=== PATIENT | female | born 1960 | race American Indian/Alaskan Native ===

== ENCOUNTER 2021-10-21 22:51 | Emergency (ER) | payer SELFPAY ==
[2021-10-22 00:20] LABS: Albumin 4.1 g/dL (3.9-5); Calcium 9.8 mg/dL (8.4-10.2)
[2021-10-22 00:39] LABS: Bacteria,Urine 1+ /HPF (Negative); Mucus,Urine FEW /HPF
[2021-10-22 00:41] LABS: Basophils % (Auto) 0.1 % (0.0-1.8); Eosinophils # (Auto) 0.1 K/mm3 (0.0-0.4); Eosinophils % (Auto) 0.7 % (0.0-4.3); Hematocrit 42.1 % (30.3-42.9); Hemoglobin 13.9 gm/dl (10.1-14.3); Lymphocytes # (Auto) 2.9 K/mm3 (1.2-5.4); Lymphocytes % (Auto) 32.1 % (13.4-35.0); Mean Corpuscular HGB Conc 33 % (30-34); Mean Corpuscular Volume 90 fl (79-97); Monocytes # (Auto) 0.8 K/mm3 (0.0-0.8); Monocytes % (Auto) 9.3 % (0.0-7.3); Platelet Count 213 K/mm3 (140-440); Red Blood Count 4.67 M/mm3 (3.65-5.03); Red Cell Distribution Width 13.2 % (13.2-15.2)
[2021-10-22 00:48] LABS: Bilirubin,Urine Negative (Negative); Blood,Urine Negative (Negative); Color,Urine Yellow (Yellow); Protein,Urine <15 mg/dL mg/dL (Negative); Urobilinogen,Urine < 2.0 mg/dL (<2.0)
--- NOTE | 2021-10-22 02:17 | Emergency Department Report ---
ED General Adult HPI - General Chief complaint: Hyperglycemia Stated complaint: TYPE 2 DIABETIC SUGAR HIGH Time Seen by Provider: 10/22/21 02:04 Source: patient Mode of arrival: Ambulatory Limitations: No Limitations - History of Present Illness Initial comments: 61-year-old female with a history of diabetes type 2, hypertension and asthma who presents with elevated blood sugar that she noticed at home. Patient reported that the glucometer read high and was concerned. Patient also reports some productive cough that is been going on for about 2 weeks. No fever or chills reported. No other modifying or associated factors reported. - Related Data Allergies Allergy/AdvReac Type Severity Reaction Status Date / Time No Known Allergies Allergy Unverified 10/21/21 23:21 ED Review of Systems ROS: Stated complaint: TYPE 2 DIABETIC SUGAR HIGH Other details as noted in HPI Comment: All other systems reviewed and negative Constitutional: malaise Respiratory: cough Cardiovascular: denies: chest pain, palpitations ED Past Medical Hx - Past Medical History Previous Medical History?: Yes Hx Diabetes: Yes Hx Asthma: Yes - Surgical History Past Surgical History?: Yes Hx Cholecystectomy: Yes Additional Surgical History: left knee x 3, - Social History Smoking Status: Never Smoker ED Physical Exam - General Limitations: No Limitations General appearance: alert, in no apparent distress, obese - Head Head exam: Present: normal inspection - Eye Eye exam: Present: normal appearance Pupils: Present: normal accommodation - ENT ENT exam: Present: normal exam, normal orophraynx, mucous membranes dry - Neck Neck exam: Present: normal inspection, full ROM. Absent: tenderness - Respiratory Respiratory exam: Present: normal lung sounds bilaterally. Absent: respiratory distress, accessory muscle use - Cardiovascular Cardiovascular Exam: Present: regular rate, normal rhythm, normal heart sounds - GI/Abdominal GI/Abdominal exam: Present: soft, normal bowel sounds. Absent: distended, tenderness - Extremities Exam Extremities exam: Present: normal inspection, normal capillary refill. Absent: pedal edema - Back Exam Back exam: Absent: tenderness - Neurological Exam Neurological exam: Present: alert, oriented X3 - Psychiatric Psychiatric exam: Present: normal affect - Skin Skin exam: Present: warm, dry ED Course Vital Signs 10/21/21 10/22/21 23:15 01:55 Temperature 99.0 F 98.1 F Pulse Rate 86 71 Respiratory 18 14 Rate Blood Pressure 142/95 Blood Pressure 132/80 [Left] O2 Sat by Pulse 96 94 Oximetry ED Medical Decision Making - Lab Data Result diagrams: 10/21/21 23:32 10/21/21 23:32 - Medical Decision Making here with elevated blood sugar and cough x 2 weeks-- patient symptoms could have been from an infectious process or any electrolytes abnormality-- so will go ahead and check routine labs including CBC, CMP and UA and CXR-- In the meantime will start aggressive ivf ns 1L bolus x 1 and give insulin 10 units SQ and IV x 1-- while waiting for the above workup labs-- Lab reviewed to be wnl -- except blood glucose 622 mg/dl -when rechecked after the above insulin and normal saline treatment is improved to 177 mg/dl-- pt reports feeling a little better and ready to be discharged. Critical care attestation.: If time is entered above; I have spent that time in minutes in the direct care of this critically ill patient, excluding procedure time. ED Disposition Clinical Impression: Cough Qualifiers: Cough type: unspecified Qualified Code(s): R05.9 - Cough, unspecified Hyperglycemia due to type 2 diabetes mellitus Qualifiers: Diabetes mellitus fdc insulin use: unspecified fdc insulin use status Qualified Code(s): E11.65 - Type 2 diabetes mellitus with hyperglycemia Disposition: 01 HOME / SELF CARE / HOMELESS Is pt being admited?: No Does the pt Need Aspirin: No Condition: Stable Instructions: Diabetes Mellitus Type 2 in Adults (ED), Insulin Treatment for Diabetes Mellitus, Hyperglycemia, [id number], Type 2 Diabetes Mellitus, Self Care, Adult, [id number] Additional Instructions: Increase your daily fluid to help your hydration Please continue with your current medical treatment as prescribed by your primary doctor and your endocrinology if you have 1 Call and schedule follow-up with your primary doctor in the next 3 to 5 days for progress Please do not hesitate to call or return to emergency if your symptoms worsen Time of Disposition: 04:35
[2021-10-22] MEDS ORDERED: INSULIN REGULAR, HUMAN 100 UNITS/1 ML SUB-Q ONE (02:18)
[2021-10-22] MEDS ORDERED: SODIUM CHLORIDE 0.9% 1000 ML 1,000 ML IV ONE ×2 (02:18→04:11)
[2021-10-22] MEDS ORDERED: INSULIN REGULAR, HUMAN 100 UNITS/1 ML IV ONE (02:18)
--- NOTE | 2021-10-22 03:32 | XRay Report ---
CHEST 1 VIEW 10/22/2021 2:06 AM INDICATION / CLINICAL INFORMATION: cough. COMPARISON: None available. FINDINGS: SUPPORT DEVICES: None. HEART / MEDIASTINUM: No significant abnormality. LUNGS / PLEURA: There are generalized bilateral interstitial opacities with more dense pulmonary opac ities noted along the right lung base. No significant pleural effusion. No pneumothorax. ADDITIONAL FINDINGS: No significant additional findings. IMPRESSION: 1. Probable bilateral edema/atelectasis. Pneumonia cannot be entirely excluded. Signer Name: Julian Whitley MD Signed: 10/22/2021 3:28 AM Workstation Name: [id number]
[2021-10-22 06:43] VITALS: BP 144/90
== END 2021-10-22 05:50 | disposition home or self-care (01) ==
LOC: ED 22:51
DX: E11.65 Type 2 diabetes mellitus with hyperglycemia (principal); R05.9 Cough, unspecified; E11.9 Type 2 diabetes mellitus without complications; J45.909 Unspecified asthma, uncomplicated; Z90.49 Acquired absence of other specified parts of digestive tract
CPT/HCPCS: 36415; 71045; 80053; 81001; 82962; 85025; 96361; 96372; 96374; 99284; J7030; Q9967; J1815